=== PATIENT | female | born 1970 | race Two or more races ===

== ENCOUNTER 2021-10-12 13:44 | Outpatient (REF) | payer OTHER, SELFPAY | END 2021-10-12 13:45 | disposition home or self-care (01) | LOC: HO.LAB 13:44 | PROVIDERS: Visit Provider Internal Medicine | DX: Z20.822 Contact with and (suspected) exposure to COVID-19 (principal) | CPT/HCPCS: C9803; U0003; U0005 ==

== ENCOUNTER 2021-11-08 13:15 | Outpatient (REF) | payer OTHER, SELFPAY ==
[2021-11-08 15:32] LABS: Binax Internal Control QC Valid; Binax Now Covid-19 Ag Positive (Negative)
== END 2021-11-08 13:16 | disposition home or self-care (01) ==
LOC: HO.LAB 13:15
PROVIDERS: Visit Provider Internal Medicine
DX: Z20.822 Contact with and (suspected) exposure to COVID-19 (principal)
CPT/HCPCS: 36415; C9803

== ENCOUNTER 2024-04-28 19:24 | Emergency (ER) | payer OTHER, SELFPAY ==
--- NOTE | 2024-04-28 19:40 | ED.GENADULT ---
HPI - General Adult General Chief complaint: Allergic Reaction Stated complaint: ? allergic reaction body rash Time Seen by Provider: 04/28/24 20:20 Source: patient Mode of arrival: ambulatory Limitations: no limitations History of Present Illness ED Provider: giuseppe OAKLEY narrative: Patient with possible poison oak rash started on 04/22 after she picked up the dog who went to the [facility] noted rash under the left breast and left arm started on prednisone 04/25 after 2 days of taking prednisone pressure hives all over the body since last night , did not take her prednisone today patient never took prednisone in the past no other new allergen or any medication patient also complaining of sore throat patient did not take prednisone today never had taken prednisone in the past no facial rash no tongue or lip swelling Related Data Previous Rx's ?Medication ?Instructions ?Recorded dexamethasone 4 mg tablet 4 mg PO DAILY #7 tabs 04/28/24 Allergies Allergy/AdvReac Type Severity Reaction Status Date / Time aspirin [ASPIRIN] Allergy Unknown DIFFICULTY Unverified 04/28/24 19:43 BREATHING Sulfa (Sulfonamide Allergy Unknown HIVES Unverified 04/28/24 19:43 Antibiotics) [SULFA (SULFONAMIDE ANTIBIOTICS)] Penicillins Allergy Hives Verified 04/28/24 19:43 Review of Systems Review of Systems: Yes all other systems are reviewed and are negative PMFSH Social History Social History Smoked in Last 30 Days: No Advance Directives: No Advance Directives Information Provided: No Do you have a plan to hurt others: No Plan Patient : No Physical Exam ED Vital Signs: Vital Signs - 24 hr 04/28/24 19:41 04/28/24 20:06 04/28/24 21:59 Temperature 98.8 F 98.7 F 98.5 F Pulse Rate 141 H 127 H 102 H Respiratory Rate 18 18 14 Blood Pressure 144/94 H 140/94 H 126/86 Pulse Oximetry 100 100 99 Oxygen Delivery Method Room Air Room Air Room Air 04/28/24 22:05 Temperature 98.5 F Pulse Rate 102 H Respiratory Rate 14 Blood Pressure 126/86 Pulse Oximetry 99 Oxygen Delivery Method Room Air BMI result Body Mass Index 20.2 Appearance: Alert. Oriented X3. No acute distress. ENT: Pharynx normal. Oral Mucosa moist Neck: Normal inspection. Neck supple. CVS: Normal heart rate and rhythm. Pulses normal. Respiratory: No respiratory distress. Equal air entry bilateral, no wheezing/rales/rhonchi Abdomen: Soft and nontender. Bowel sounds are present, no mass palpable, no CVA tenderness Skin: Skin warm and dry. Normal skin color. Normal skin turgor. Maculopapular rash under the left breast bilateral thigh and upper extremity no high-risk noticed at this time Extremities: No lower extremity edema. No calf tenderness Neuro: Oriented X 3. Course Course Course Narrative: This is a rapid medical exam performed by July José NP: Additional HPI, ROS, PE not included below will be deferred to primary provider. Patient is a 54-year-old female presenting to the ED with complaint of hives and throat tightness. Started on prednisone on the for poison oak, developed hives on the , today throat has felt tight since this morning. Hives noted to arms and legs in triage, lungs clear to auscultation, no angioedema or uvula edema. Has been taking benadryl Q6H. Medications Administered Discontinued Medications Generic Name Dose Route Start Last Admin Trade Name Freq PRN Reason Stop Dose Admin Dexamethasone 10 mg 04/28/24 20:38 04/28/24 20:46 Dexamethasone 2 Mg Tablet PO 04/28/24 20:39 10 mg ONCE ONE Administration Diphenhydramine HCl 50 mg 04/28/24 20:38 04/28/24 20:46 Diphenhydramine Hcl 25 Mg Capsule PO 04/28/24 20:39 50 mg ONCE ONE Administration Famotidine 20 mg 04/28/24 20:38 04/28/24 20:46 Famotidine 20 Mg Tablet PO 04/28/24 20:39 20 mg ONCE ONE Administration Medical Decision Making Medical Decision Making [facility] Narrative: Patient's allergic reaction questionable to prednisone give her Decadron patient felt better discharge patient home on Benadryl and Decadron Lab Data Labs: Lab Results 04/28/24 Range/Units 20:50 S. pyogenes GrpA LUZ Negative (Negative) Discharge Plan Discharge Clinical Impression: Allergic reaction, Contact dermatitis Patient Disposition: Home, Self-Care Instructions: Poison Nimisha (ED), General Allergic Reaction (ED) Additional Instructions: Positive with might be allergic to prednisone not sure L follow up with allergic specialist confirm that Take Decadron for rash as prescribed take Benadryl for severe itchiness Prescriptions: New dexamethasone 4 mg tablet 4 mg PO DAILY Qty: 7 0RF Interventions: ED Discharge Assessment Last Done: 04/28/24 22:05 Discharge Date/Time: 04/28/24 22:06 Print Language: Pashto
[2024-04-28 19:41] VITALS: BP 144/94; PULSE 141; RESP 18; TEMP 37.1; O2SAT 100; BMI 20.2
[2024-04-28 20:06] VITALS: BP 140/94; PULSE 127; RESP 18; TEMP 37.1; O2SAT 100
--- NOTE | 2024-04-28 20:12 | PC.NURSE ---
pt states that he HR is always high and she is being evaluated for it at cardio
[2024-04-28] MEDS: dexAMETHasone 2 MG TABLET 10 MG PO (20:46)
[2024-04-28] MEDS: diphenhydrAMINE HCL 25 MG CAPSULE 50 MG PO (20:46)
[2024-04-28] MEDS: Famotidine 20 MG TABLET PO (20:46)
--- NOTE | 2024-04-28 20:47 | ECG_ITS ---
Test Reason : TACARDYA Blood Pressure : / mmHG Vent. Rate : 100 BPM Atrial Rate : 100 BPM P-R Int : 116 ms QRS Dur : 080 ms QT Int : 330 ms P-R-T Axes : 049 066 037 degrees QTc Int : 425 ms Normal sinus rhythm Normal ECG When compared with ECG of 06-OCT-2019 10:29, No significant change was found Referred By: Lito Carlisle Electronically Signed By:PAIGE PIERRE MD
[2024-04-28 21:09] LABS: IDNOW Serial# 08D9AD1C; Strep A Nucleic Acid Negative (Negative)
[2024-04-28 21:59] VITALS: BP 126/86; PULSE 102; RESP 14; TEMP 36.9; O2SAT 99
[2024-04-28 22:05] VITALS: BP 126/86; PULSE 102; RESP 14; TEMP 36.9; O2SAT 99
== END 2024-04-28 22:06 | disposition home or self-care (01) ==
PROVIDERS: Emergency Provider Internal Medicine; PCP Internal Medicine
DX: L50.0 Allergic urticaria (principal); J02.9 Acute pharyngitis, unspecified; R00.0 Tachycardia, unspecified
CPT/HCPCS: 87651; 93005; 99283; 99284; J8540

== ENCOUNTER → 2024-04-28 20:47 | Outpatient (BNV) | payer OTHER, SELFPAY | PROVIDERS: Emergency Provider Internal Medicine; PCP Internal Medicine; Visit Provider Internal Medicine Cardiovascular Disease | DX: R00.0 Tachycardia, unspecified (principal) | CPT/HCPCS: 93010 ==